=== PATIENT | male | born 1990 | race Caucasian/White ===

== ENCOUNTER 2018-07-20 04:42 | Emergency (ER) | payer OTHER ==
[~2018-07-20] VITALS: Ht 180.3 cm; Wt 78.9 kg
[2018-07-20 04:48] VITALS: Ht 180.3 cm; Wt 78.9 kg
[2018-07-20 07:39] VITALS: BP 147/82
== END 2018-07-20 07:39 | disposition home or self-care (01) ==
LOC: ED 04:42
DX: S01.511A Laceration without foreign body of lip, initial encounter (principal); S51.812A Laceration without foreign body of left forearm, initial encounter; M25.561 Pain in right knee; W13.0XXA Fall from, out of or through balcony, initial encounter; Y93.89 Activity, other specified; Y92.89 Other specified places as the place of occurrence of the external cause; Y99.8 Other external cause status
CPT/HCPCS: J2001

== ENCOUNTER 2018-07-25 13:39 | Emergency (ER) | payer OTHER ==
[~2018-07-25] VITALS: Ht 180.3 cm; Wt 77.1 kg
[2018-07-25 14:40] VITALS: Ht 180.3 cm; Wt 77.1 kg
[2018-07-25 15:09] VITALS: BP 124/88
== END 2018-07-25 15:09 | disposition home or self-care (01) ==
LOC: ED 13:39
DX: S01.81XD Laceration without foreign body of other part of head, subsequent encounter (principal); S51.812D Laceration without foreign body of left forearm, subsequent encounter; Z48.02 Encounter for removal of sutures; X58.XXXD Exposure to other specified factors, subsequent encounter